=== PATIENT | male | born 1975 | race Caucasian/White ===

== ENCOUNTER 2018-11-07 23:52 | Emergency (ER) | payer SELFPAY ==
[~2018-11-07] VITALS: Ht 160 cm; Wt 62.6 kg
[2018-11-07 23:56] VITALS: BP 102/82
--- NOTE | 2018-11-07 23:56 | NUR ---
TO BED # `11 AMBULATORY
[2018-11-08] MEDS ORDERED: predniSONE 20 MG TAB PO ONE (00:10)
[2018-11-08] MEDS ORDERED: ACETAMINOPHEN EXTRA STRENGTH 500 MG TAB PO ONE (00:10)
--- NOTE | 2018-11-08 00:10 | NUR ---
BIB SELF REPORTS FACIAL NUMBNESS AND DROOP ON LEFT SIDE OF FACE STARTING AT 1400 YESTERDAY. UNABLE TO RAISE EYEBROW. EQUAL AND REACTIVE PUPILS. 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 DENIES OTHER SYMPTOMS. ERMD MADE AWARE.
--- NOTE | 2018-11-08 00:12 | NUR ---
DR HERNANDEZ AT BEDSIDE.
--- NOTE | 2018-11-08 00:26 | NUR ---
PATIENT TAKEN TO CT IN WHEELCHAIR.
--- NOTE | 2018-11-08 00:40 | NUR ---
PT BACK FROM CT
[2018-11-08 01:37] VITALS: BP 102/82
--- NOTE | 2018-11-08 01:38 | NUR ---
Patient discharged with v/s stable. Written and verbal after care instructions given and explained. Patient alert, oriented and verbalized understanding of instructions. Ambulatory with steady gait. All questions addressed prior to discharge. ID band removed. Patient advised to follow up with PMD. Rx of ACYCLOVIR, ARTIFICIAL TEARS, PREDNISONE given. Patient educated on indication of medication including possible reaction and side effects. Opportunity to ask questions provided and answered.
== END 2018-11-08 01:38 | disposition home or self-care (01) ==
LOC: MED 23:52
DX: G51.0 Bell's palsy (principal); R51 Headache; H92.01 Otalgia, right ear
CPT/HCPCS: 70450; 99284; J7512